=== PATIENT | female | born 2000 | race Two or more races ===

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

== ENCOUNTER 2020-01-24 19:27 | Emergency (ER) | payer OTHER ==
[~2020-01-24] VITALS: Ht 154.9 cm; Wt 65.8 kg
[2020-01-24 19:27] VITALS: BP 127/73
== END 2020-01-24 20:20 | disposition home or self-care (01) ==
LOC: ER 19:31
DX: H60.92 Unspecified otitis externa, left ear (principal)

== ENCOUNTER 2020-06-20 16:40 | Emergency (ER) | payer OTHER ==
[~2020-06-20] VITALS: Ht 157.5 cm; Wt 72.6 kg
[2020-06-20 16:43] VITALS: BP 146/88
[2020-06-20] MEDS ORDERED: AMOX-430 PO (17:07)
[2020-06-20] MEDS ORDERED: OFLO5DRO5 LEFT EAR (17:07)
--- NOTE | 2020-06-20 17:25 | NUR ---
RAPID STREP SPECIMEN OBTAINED AND SENT TO LAB.
--- NOTE | 2020-06-20 17:29 | NUR ---
Patient discharged to home in stable condition. Written and verbal after care instructions given. Patient verbalizes understanding of instruction.
== END 2020-06-20 17:30 | disposition home or self-care (01) ==
LOC: ER 16:45
DX: J03.90 Acute tonsillitis, unspecified (principal); H60.92 Unspecified otitis externa, left ear
CPT/HCPCS: 86403-TC; 87070-TC

== ENCOUNTER 2020-07-17 20:43 | Emergency (ER) | payer OTHER ==
[~2020-07-17] VITALS: Ht 157.5 cm; Wt 68.0 kg
[2020-07-17 20:43] VITALS: BP 141/99
[~2020-07-17 20:43] MED LIST: AMOX-430 PO; OFLO5DRO5 LEFT EAR
[2020-07-17] MEDS ORDERED: OFLO5DRO5 LEFT EAR (21:57)
--- NOTE | 2020-07-17 22:04 | NUR ---
Patient discharged to home in stable condition. Written and verbal after care instructions given. Patient verbalizes understanding of instruction.(pt. name) ambulatory with a steady gait
== END 2020-07-17 22:05 | disposition home or self-care (01) ==
LOC: ER 20:50
DX: H60.92 Unspecified otitis externa, left ear (principal); Z79.899 Other long term (current) drug therapy

== ENCOUNTER 2021-06-01 19:53 | Emergency (ER) | payer MEDICAID, OTHER ==
[~2021-06-01] VITALS: Ht 157.5 cm; Wt 68.0 kg
--- NOTE | 2021-06-01 20:10 | NUR ---
BIB MOM FOR C/O LOWER BAD PAIN, NAUSEA AND DYSURIA X 2 DAYS. PATIENT ALERT AND ORIENTED X3. AMBULATORY WITH NON LABORED BREATHING.
[2021-06-01] MEDS ORDERED: IV NS 0.9% 1,000 ML BAG IV ONE (21:00)
[2021-06-01] MEDS ORDERED: KETOROLAC TROMETHAMINE INJ 30 MG/ML VIAL IV ONE (21:00)
[2021-06-01] MEDS ORDERED: ONDANSETRON HCL/PF 4 MG/2 ML VIAL IVP ONE (21:00)
[2021-06-01] MEDS ORDERED: ONDANSETRON HCL/PF 4 MG/2 ML VIAL ONE (21:00)
[2021-06-01] MEDS ORDERED: MAG HYDROX/AL HYDROX/SIMETH 30 ML UDC PO ONE (21:00)
[2021-06-01] MEDS ORDERED: MAG HYDROX/AL HYDROX/SIMETH 30 ML UDC ONE (21:00)
[2021-06-01] MEDS ORDERED: KETOROLAC TROMETHAMINE INJ 30 MG/ML VIAL ONE (21:00)
[2021-06-01 21:10] LABS: BASOPHILS # (AUTO) 0.1 K/uL (0.0-0.2); BASOPHILS % (AUTO) 0.8 % (0.0-2.0); EOSINOPHILS % (AUTO) 1.1 % (0.0-6.0); HEMATOCRIT 41 % (33-45); HEMOGLOBIN 13.9 g/dL (11.5-14.8); LYMPHOCYTES # (AUTO) 1.8 K/uL (0.8-4.8); LYMPHOCYTES % (AUTO) 19.6 % (20.0-44.0); MEAN CORPUSCULAR HGB CONC 34 g/dl (31.0-36.0); MEAN CORPUSCULAR VOLUME 82 fL (82-100); MONOCYTES # (AUTO) 0.6 K/uL (0.1-1.30); MONOCYTES % (AUTO) 6.2 % (2.0-12.0); NEUTROPHILS # (AUTO) 6.6 K/uL (1.8-8.9); NEUTROPHILS % (AUTO) 72.3 % (43.0-81.0); PLATELET COUNT (AUTO) 227 K/uL (150-450); RED BLOOD CELL COUNT(AUTO) 4.98 MIL/uL (4.0-5.2); WHITE BLOOD COUNT (AUTO) 9.1 K/uL (4.3-11.0)
--- NOTE | 2021-06-01 21:10 | NUR ---
ESTABLISHED PERIPHERAL IV ON LEFT AC 18G, GOOD BLOOD RETURN
--- NOTE | 2021-06-01 21:10 | NUR ---
BLOOD SAMPLE COLLECTED, SENT TO LAB
--- NOTE | 2021-06-01 21:11 | NUR ---
COMPLAINING OF NAUSEA, NO EMESIS PRESENT. ADMINISTERED MAALOX & ZOFRAN. WILL CONTINUE TO MONITOR
[2021-06-01 21:44] LABS: BILIRUBIN,URINE NEGATIVE (NEGATIVE); COLOR,URINE YELLOW (YELLOW); LEUKOCYTE ESTERASE ,URINE NEGATIVE (NEGATIVE); NITRITE, URINE NEGATIVE (NEGATIVE); PH,URINE 6.5 (5.0-8.0); PROTEIN,URINE NEGATIVE (NEGATIVE); UGLUCOSE NEGATIVE (NEGATIVE); UROBILINOGEN,URINE 0.2 EU/dL (0.2)
[2021-06-01 21:48] LABS: BILIRUBIN,DIRECT 0.1 mg/dL (0.0-0.2); BILIRUBIN,TOTAL 0.3 mg/dL (0.2-1.0); CALCIUM, SERUM 9.2 mg/dL (8.5-10.1); CREATININE 0.7 mg/dL (0.6-1.3); TOTAL PROTEIN, SERUM 7.7 g/dL (6.4-8.2)
[2021-06-01] MEDS ORDERED: ONDA4TAB5 PO (22:52)
--- NOTE | 2021-06-01 22:56 | NUR ---
Patient discharged to home in stable condition. Written and verbal after care instructions given. Patient verbalizes understanding of instruction.
[2021-06-01 22:57] VITALS: BP 128/75
== END 2021-06-01 23:03 | disposition home or self-care (01) ==
LOC: ER 19:57
DX: R10.30 Lower abdominal pain, unspecified (principal); Z79.899 Other long term (current) drug therapy
CPT/HCPCS: 36415; 74176; 80048; 80076; 81003; 83690; 84703; 85025; 96361; 96374; 96375; 99284; J1885; J2405; J7030